=== PATIENT | female | born 1980 | race Caucasian/White ===

== ENCOUNTER → 2021-10-27 | Outpatient (CLI) | payer OTHER ==
[~2021-10-27] MED LIST: ALPR0.25 PO; ESTR-113 PO; FLUO20CA16 PO; HYDR-2765 PO; HYDR-2769 PO; VORT10TA PO
--- NOTE | 2021-10-27 13:00 | KCIC ---
Coronary calcium score CT chest without contrast and extracardiac review. History: Hypertension and 15 year smoker Technique: With retrospective electrocardiogram gating 2.5 mm thick axial reconstructed noncontrast i mages of the chest at the level of the coronary arteries was performed. Images were post processed on a [employer] workstation and calcium score calculated using the modified Agatston Janowitz protocol. A large [id number] was provided for review as well to review possible extracardiac findings. Findings: Total coronary calcium score is 23.2. This is a mild plaque burden and moderate cardiovascular disea se risk. This is based on the calcium score of 0 of the left main coronary artery, 0of the left anter ior descending artery, score of 0 of the left circumflex artery and score of 23.2 of the right andresw ry artery. Noncoronary findings demonstrate a few calcified granuloma on the right. Impression: Mild heart disease and moderate cardiovascular risk. Given the risk and the burden of plaque that is in the right coronary artery, follow-up consultation with a cd mixer is recommended. End of impression One or more of the following individualized dose reduction techniques were utilized for this examina tion: 1. Automated exposure control 2. Adjustment of the mA and/or kV according to patient size 3. Use of iterative reconstruction technique Electronically signed by: Jonel Spencer III, MD (10/27/2021 12:57 PM) [facility]
== END ==
LOC: KCIC CT 09:52
PROVIDERS: ATTEND Family Medicine
DX: I25.10 Atherosclerotic heart disease of native coronary artery without angina pectoris (principal); J84.10 Pulmonary fibrosis, unspecified
CPT/HCPCS: 75571